=== PATIENT | female | born 1995 | race Asian ===

== ENCOUNTER 2020-07-16 11:25 | Outpatient (CLI) | payer OTHER | END 2020-07-16 19:40 | disposition home or self-care (01) | LOC: LABW 11:25 | PROVIDERS: ATTEND Nurse Practitioner Primary Care | DX: R80.9 Proteinuria, unspecified (principal) | CPT/HCPCS: 84156 ==

== ENCOUNTER 2020-09-20 11:15 | Outpatient (CLI) | payer OTHER ==
[2020-09-20 13:05] LABS: PLATELET COUNT 162 K/uL (152-353)
[2020-09-20 13:06] LABS: POTASSIUM 4.4 mmol/L (3.6-5.2)
== END 2020-09-20 21:49 | disposition home or self-care (01) ==
LOC: LABW 11:15
PROVIDERS: ATTEND Student in an Organized Health Care Education/Training Program
DX: R80.9 Proteinuria, unspecified (principal); N18.31 Chronic kidney disease, stage 3a; N28.1 Cyst of kidney, acquired; E87.2 Acidosis; I12.9 Hypertensive chronic kidney disease with stage 1 through stage 4 chronic kidney disease, or unspecified chronic kidney disease
CPT/HCPCS: 36415; 80053; 81000; 82043; 82088; 82306; 82384; 82533; 82570; 83835; 83970; 84244; 85027; 87086; 87088

== ENCOUNTER 2020-10-18 08:16 | Outpatient (CLI) | payer OTHER | END 2020-10-18 22:43 | disposition home or self-care (01) | LOC: US 08:16 | PROVIDERS: ATTEND Student in an Organized Health Care Education/Training Program | DX: R80.9 Proteinuria, unspecified (principal); N18.31 Chronic kidney disease, stage 3a; I10 Essential (primary) hypertension; N28.1 Cyst of kidney, acquired; E87.2 Acidosis | CPT/HCPCS: 93975 ==

== ENCOUNTER → 2021-01-31 | Outpatient (CLI) | payer OTHER ==
[2021-01-31 21:21] LABS: PLATELET COUNT 178 K/uL (152-353)
[2021-01-31 21:36] LABS: POTASSIUM 3.8 mmol/L (3.6-5.2)
== END ==
LOC: LAB 20:20
PROVIDERS: ATTEND Student in an Organized Health Care Education/Training Program
DX: R80.9 Proteinuria, unspecified (principal); N27.0 Small kidney, unilateral; N18.31 Chronic kidney disease, stage 3a; N28.1 Cyst of kidney, acquired; E87.2 Acidosis; I12.9 Hypertensive chronic kidney disease with stage 1 through stage 4 chronic kidney disease, or unspecified chronic kidney disease
CPT/HCPCS: 36415; 80053; 81000; 82306; 82570; 84155; 85027

== ENCOUNTER 2021-04-11 13:58 | Outpatient (CLI) | payer OTHER ==
[2021-04-11 14:21] LABS: POTASSIUM 3.9 mmol/L (3.6-5.2)
== END 2021-04-11 20:18 | disposition home or self-care (01) ==
LOC: LABW 13:58
PROVIDERS: ATTEND Student in an Organized Health Care Education/Training Program
DX: R80.9 Proteinuria, unspecified (principal); N27.0 Small kidney, unilateral; N18.31 Chronic kidney disease, stage 3a; N28.1 Cyst of kidney, acquired; E87.2 Acidosis; I12.9 Hypertensive chronic kidney disease with stage 1 through stage 4 chronic kidney disease, or unspecified chronic kidney disease
CPT/HCPCS: 36415; 80053; 82570; 84155

== ENCOUNTER 2021-06-25 10:51 | Outpatient (CLI) | payer OTHER ==
[2021-06-25 12:06] LABS: POTASSIUM 3.8 mmol/L (3.6-5.2)
== END 2021-06-25 19:37 | disposition home or self-care (01) ==
LOC: US 10:51
PROVIDERS: ATTEND Nurse Practitioner Family
DX: R60.0 Localized edema (principal); T50.Z95A Adverse effect of other vaccines and biological substances, initial encounter
CPT/HCPCS: 36415; 80053; 82550; 82553; 85379

== ENCOUNTER 2021-06-26 15:14 | Outpatient (CLI) | payer OTHER ==
[2021-06-26 15:32] LABS: POTASSIUM 3.8 mmol/L (3.6-5.2)
== END 2021-06-26 21:15 | disposition home or self-care (01) ==
LOC: LABW 15:14
PROVIDERS: ATTEND Nurse Practitioner Family
DX: R60.0 Localized edema (principal); T50.Z95A Adverse effect of other vaccines and biological substances, initial encounter
CPT/HCPCS: 36415; 80053; 85379

== ENCOUNTER 2021-08-05 12:06 | Emergency (ER) | payer OTHER ==
[~2021-08-05] VITALS: Ht 160 cm; Wt 99.8 kg
[2021-08-05 12:06] VITALS: TEMP 97.8
[2021-08-05 12:35] LABS: PLATELET COUNT 184 K/uL (152-353)
[2021-08-05 12:38] LABS: POTASSIUM 4.4 mmol/L (3.6-5.2)
[2021-08-05 12:59] LABS: PARTIAL THROMBOPLASTIN TIME 23.1 SECONDS (24.5-33.6)
[2021-08-05 15:00] VITALS: BP 152/88
== END 2021-08-05 15:00 | disposition home or self-care (01) ==
LOC: ED 12:06
PROVIDERS: Emergency Medicine
DX: S13.4XXA Sprain of ligaments of cervical spine, initial encounter (principal); N18.30 Chronic kidney disease, stage 3 unspecified; V54.5XXA Driver of pick-up truck or van injured in collision with heavy transport vehicle or bus in traffic accident, initial encounter; Y92.89 Other specified places as the place of occurrence of the external cause
CPT/HCPCS: 80048; 84484; 85027; 85610; 85730; 93005; 96374; 96375; 99284; J1170; J2405

== ENCOUNTER 2022-01-22 13:14 | Outpatient (CLI) | payer OTHER | END 2022-01-22 19:34 | disposition home or self-care (01) | LOC: RAD 13:14 | PROVIDERS: ATTEND Family Medicine | DX: Z11.1 Encounter for screening for respiratory tuberculosis (principal) ==